=== PATIENT | male | born 2000 | race Caucasian/White ===

== ENCOUNTER 2020-03-25 20:21 | Emergency (ER) | payer BC ==
[2020-03-25 20:27] VITALS: BP 155/86; PULSE 91; RESP 18; TEMP 98.7
[2020-03-25] MEDS ORDERED: DIPH,PERTUS(ACELL)TETVAC-LF 0.5 ML VIAL IM ONE (20:32)
--- NOTE | 2020-03-25 20:39 | ED ---
Wound/Laceration HPI - General Chief Complaint: Wound/Laceration Stated Complaint: Finger Lac Time Seen by Provider: 03/25/20 20:28 Source: patient, RN notes reviewed, old records reviewed Mode of arrival: ambulatory Limitations: no limitations - History of Present Illness Initial Comments: 19-year-old male presents emergency Department today for an abrasion over his right index finger. Patient states that he has been outside working in the [employer] and was exposed to a claudia metal and states that he knows that he is overdue for a tetanus vaccine. Patient reports that he has no further bleeding and the wound is dirty clothes at this time. Patient states that he has full range of motion of the finger which caused the abrasion today and has normal sensation distally. - Related Data Allergies Allergy/AdvReac Type Severity Reaction Status Date / Time No Known Allergies Allergy Verified 03/25/20 20:27 Review of Systems ROS Statement: Those systems with pertinent positive or pertinent negative responses have been documented in the HPI. ROS Other: All systems not noted in ROS Statement are negative. Past Medical History Past Medical History: No Reported History History of Any Multi-Drug Resistant Organisms: None Reported Past Surgical History: Tonsillectomy Past Psychological History: No Psychological Hx Reported Smoking Status: Never smoker Past Alcohol Use History: None Reported Past Drug Use History: None Reported General Exam - General Exam Comments Initial Comments: 19-year-old male. Alert and oriented 3. No distress. Limitations: no limitations General appearance: alert, in no apparent distress Head exam: Present: atraumatic, normocephalic, normal inspection Eye exam: Present: normal appearance, PERRL, EOMI. Absent: scleral icterus, conjunctival injection, periorbital swelling ENT exam: Present: normal exam, mucous membranes moist Neck exam: Present: normal inspection. Absent: tenderness, meningismus, lymphadenopathy Respiratory exam: Present: normal lung sounds bilaterally. Absent: respiratory distress, wheezes, rales, rhonchi, stridor Cardiovascular Exam: Present: regular rate, normal rhythm, normal heart sounds. Absent: systolic murmur, diastolic murmur, rubs, gallop, clicks GI/Abdominal exam: Present: soft, normal bowel sounds. Absent: distended, tenderness, guarding, rebound, rigid Extremities exam: Present: normal inspection, full ROM, normal capillary refill, other (1cm dirty abrasion over right index finger). Absent: tenderness, pedal edema, joint swelling, calf tenderness Back exam: Present: normal inspection Neurological exam: Present: alert, oriented X3, CN II-XII intact Psychiatric exam: Present: normal affect, normal mood Skin exam: Present: warm, dry, intact, normal color. Absent: rash Course Vital Signs 03/25/20 20:25 Temperature 98.7 F Pulse Rate 91 Respiratory 18 Rate Blood Pressure 155/86 O2 Sat by Pulse 97 Oximetry Medical Decision Making - Medical Decision Making Patient's a 19-year-old male presents today requesting a tetanus vaccine update. Patient reports that he works with his hands and had caused an abrasion over his right index finger today. Reports the bleeding is well-controlled at this time and a stop. Patient states that he has no other complaints besides requesting an updated tetanus. He last had it 12 years old. She given updated 2008. His wound otherwise appears well. Discussed keeping the area clean and monitoring for infection. Disposition Clinical Impression: Finger abrasion Disposition: HOME SELF-CARE Condition: Good Instructions (If sedation given, give patient instructions): Abrasion (ED), Tdap and Td Vaccines for Adults (ED) Additional Instructions: Monitor for any redness swelling or drainage from the finger. Please follow up with family doctor if symptoms have not improved over the next two days. Please return to the emergency room if your symptoms increase or worsen or for any other concerns. Is patient prescribed a controlled substance at d/c from ED?: No Referrals: Juancho Steele DO [Primary Care Provider] - 1-2 days Time of Disposition: 20:39
== END 2020-03-25 20:55 | disposition home or self-care (01) ==
LOC: EC 20:21
DX: S60.410A Abrasion of right index finger, initial encounter (principal); Z23 Encounter for immunization; X58.XXXA Exposure to other specified factors, initial encounter; Y93.89 Activity, other specified; Y92.009 Unspecified place in unspecified non-institutional (private) residence as the place of occurrence of the external cause
CPT/HCPCS: 90471; 90715; 99283

== ENCOUNTER 2020-08-03 14:28 | Emergency (ER) | payer BC ==
[2020-08-03 14:35] VITALS: BP 123/70; PULSE 64; RESP 18; TEMP 98.9
[2020-08-03] MEDS ORDERED: LIDOCAINE 1% INJ 10MG/ML (20 ML MDV) SQ ONE (14:42)
[2020-08-03] MEDS ORDERED: BACITRACIN OINT 1 EACH PACKET TOPICAL ONE (15:18)
--- NOTE | 2020-08-03 15:35 | ED ---
Wound/Laceration HPI - General Chief Complaint: Wound/Laceration Stated Complaint: Left Hand Laceration Time Seen by Provider: 08/03/20 14:42 Source: patient Mode of arrival: ambulatory Limitations: no limitations - History of Present Illness Initial Comments: 20-year-old male presenting today for chief complaint of left hand laceration. Patient states he cut it with a razor. Patient states he was carving pumpkins at the time. Patient states he thought he might need sutures and presented to the ER today for repair. Bleeding controlled on arriva. Tdap UTD. No additional complaints. - Related Data Allergies Allergy/AdvReac Type Severity Reaction Status Date / Time No Known Allergies Allergy Verified 08/03/20 14:35 Review of Systems ROS Statement: Those systems with pertinent positive or pertinent negative responses have been documented in the HPI. ROS Other: All systems not noted in ROS Statement are negative. Past Medical History Past Medical History: No Reported History History of Any Multi-Drug Resistant Organisms: None Reported Past Surgical History: Tonsillectomy Past Psychological History: No Psychological Hx Reported Smoking Status: Never smoker Past Alcohol Use History: None Reported Past Drug Use History: None Reported General Exam - General Exam Comments Initial Comments: General: The patient is awake and alert, in no distress, and does not appear acutely ill. Eye: Pupils are equal, round and reactive to light, extra-ocular movements are intact. No nystagmus. There is normal conjunctiva bilaterally. No signs of ic terus. Cardiovascular: There is a regular rate and rhythm. No murmur, rub or gallop is appreciated. Respiratory: Lungs are clear to auscultation, respirations are non-labored, breath sounds are equal. No wheezes, stridor, rales, or rhonchi. Musculoskeletal: Normal ROM, no tenderness at the thumb and index finger inclu ding the MCP joint. Strength 5/5. Sensation intact. Pulses equal bilaterally 2+. Capillary refill less than 3 seconds Neurological: A&O x 3. CN II-XII intact, There are no obvious motor or sensory deficits. Coordination appears grossly intact. Speech is normal. Skin: Skin is warm and dry and no [id number] laceration on the left hand between the thumb and index finger just inferior to webspace. Noted venous bleeding after palpating area, figure 8 put in to control bleeding with success. Psychiatric: Cooperative, appropriate mood & affect, normal judgment. Limitations: no limitations Course Vital Signs 08/03/20 14:33 Temperature 98.9 F Pulse Rate 64 Respiratory 18 Rate Blood Pressure 123/70 O2 Sat by Pulse 98 Oximetry Procedures - Laceration Laceration #1 Consent Obtained: verbal consent Indication: laceration Site: hand (2) Size (cm): 2 Description: linear Depth: simple, single layer Anesthetic Used: lidocaine 1% Anesthesia Technique: local infiltration Amount (mls): 1 Pre-repair: wound explored, irrigated extensively, deep structures intact Type of Sutures: nylon Size of Sutures: 4-0 Number of Sutures: 4 Technique: simple, interrupted (3), other (1 figure 8 suture for small venous bleed) Patient Tolerated Procedure: well, no complications Medical Decision Making - Medical Decision Making Laceration repaired. Neurovascular intact. No evidence of physical examination concern for tendon injury. No retained foreign body was noted. Patient states it was clean cut. Patient rdap UTD. Patient discharged with instruction to monitor for infection as well as return for timely suture removal. Patient agreeable to care plan and discharge. Disposition Clinical Impression: Hand laceration Disposition: HOME SELF-CARE Condition: Good Instructions (If sedation given, give patient instructions): Laceration (ED) Additional Instructions: Please use medication as discussed. Please follow-up with family doctor in the next 2 days. Suture removal in 7-10 days. Please return to emergency room if the symptoms increase or worsen or for any other concerns. Is patient prescribed a controlled substance at d/c from ED?: No Referrals: Juancho Steele DO [Primary Care Provider] - 1-2 days Time of Disposition: 15:35
== END 2020-08-03 15:48 | disposition home or self-care (01) ==
LOC: EC 14:28
DX: S61.412A Laceration without foreign body of left hand, initial encounter (principal); W26.8XXA Contact with other sharp object(s), not elsewhere classified, initial encounter; Y93.89 Activity, other specified
CPT/HCPCS: 99282; 12001; J2001